=== PATIENT | male | born 1940 | race Caucasian/White ===

== ENCOUNTER 2018-03-25 18:24 | Emergency (ER) | payer OTHER ==
[~2018-03-25 18:24] MED LIST: ATROPINE 0.5 MG/5 ML DISP.SYRINGE.; EPINEPHrine SYRINGE 1 MG/10 ML SYRINGE; EPINEPHrine VIAL 30 MG/30 ML VIAL; SODIUM BICARB ADULT 8.4% 50 MEQ/50 ML DISP.SYRIN.
[2018-03-25 18:41] LABS: AGAP ISTAT 23 mmol/L (6-14); BUN ISTAT 41 mg/dL (8-26); CHLORIDE ISTAT 110 mmol/L (98-110); CREATININE ISTAT 2.1 mg/dL (0.5-1.4); GLUCOSE ISTAT 317 mg/dL (70-99); HEMATOCRIT ISTAT 36 % (37-52); HEMOGLOBIN ISTAT 12.2 g/dL (14-18); ION CA ISTAT 1.13 mmol/L (1.13-1.32); POTASSIUM ISTAT 5.4 mmol/L (3.5-5.0); SODIUM ISTAT 143 mmol/L (135-145); TOT CO2 ISTAT 16 mmol/L (23-32)
[2018-03-25 19:05] LABS: ADD MAN DIFF? NO
[2018-03-25 19:09] LABS: BASO # 0.1 x10^3/uL (0.0-0.2); BASO % 1 % (0-3); EOS # 0.1 x10^3/uL (0.0-0.7); EOS % 1 % (0-3); HEMATOCRIT 41.6 % (39.0-53.0); HEMOGLOBIN 12.6 g/dL (13.0-17.5); LYMPH # 4.8 x10^3/uL (1.0-4.8); LYMPH % 40 % (24-48); MEAN CORPUSCULAR HEMOGLOBIN 31 pg (25-35); MEAN CORPUSCULAR HGB CONC 30 g/dL (31-37); MEAN CORPUSCULAR VOLUME 103 fL (79-100); MONO # 0.1 x10^3/uL (0.0-1.1); MONO % 1 % (0-9); NEUT # 6.9 x10^3uL (1.8-7.7); NEUT % 58 % (31-73); PLATELET COUNT 53 x10^3/uL (140-400); RED BLOOD COUNT 4.05 x10^6/uL (4.30-5.70); RED CELL DISTRIBUTION WIDTH 16.1 % (11.5-14.5); WHITE BLOOD COUNT 11.9 x10^3/uL (4.0-11.0)
[2018-03-25 19:16] LABS: ANION GAP 25 (6-14); BLOOD UREA NITROGEN 34 mg/dL (8-26); CALCIUM 9.6 mg/dL (8.5-10.1); CARBON DIOXIDE 18 mmol/L (21-32); CHLORIDE 106 mmol/L (98-107); CREATININE 2.5 mg/dL (0.7-1.3); GFR 25.3; GLUCOSE 353 mg/dL (70-99); POTASSIUM 5.9 mmol/L (3.5-5.1); SODIUM 149 mmol/L (136-145)
[2018-03-25 19:22] LABS: ALBUMIN 3.1 g/dL (3.4-5.0); ALK PHOS 132 U/L (46-116); ALT (SGPT) 101 U/L (16-63); AST (SGOT) 113 U/L (15-37); DIRECT BILIRUBIN 0.1 mg/dL (0.0-0.2); TOTAL BILIRUBIN 0.3 mg/dL (0.2-1.0); TOTAL PROTEIN 6.3 g/dL (6.4-8.2)
[2018-03-25 19:24] LABS: TROPONINI 0.027 ng/mL (0.000-0.055)
[2018-03-26 06:58] LABS: TROPONIN BY ISTAT 0.01 ng/ml (<0.08)
== END 2018-03-25 20:41 | disposition expired ==
LOC: ER 20:41
DX: I46.9 Cardiac arrest, cause unspecified (principal)
CPT/HCPCS: 36415; 80047; 80048; 80076; 84484; 85025; 92950; 99291-25; J0171; J0461